=== PATIENT | female | born 1950 | race Caucasian/White ===

== ENCOUNTER → 2016-06-26 | Outpatient (CLI) | payer MEDICARE, SELFPAY | LOC: MRI 06-11 13:00 | DX: M54.2 Cervicalgia (principal); G89.4 Chronic pain syndrome; M50.21 Other cervical disc displacement, high cervical region; M46.02 Spinal enthesopathy, cervical region | CPT/HCPCS: 72141 ==

== ENCOUNTER → 2016-09-01 | Outpatient (CLI) | payer MEDICARE | LOC: RT 12:22 | DX: I10 Essential (primary) hypertension (principal) | CPT/HCPCS: 76536; 93005 ==

== ENCOUNTER → 2020-07-17 | Outpatient (CLI) | payer MEDICARE ==
[~2020-07-17] MED LIST: CYCLOBENZAPRINE10 MG PO; IBUPROFEN400 MG PO
== END ==
LOC: RAD 10:10
DX: M51.36 Other intervertebral disc degeneration, lumbar region (principal); K22.70 Barrett's esophagus without dysplasia; I10 Essential (primary) hypertension; M54.5 Low back pain; M50.322 Other cervical disc degeneration at C5-C6 level; M43.8X4 Other specified deforming dorsopathies, thoracic region; M51.34 Other intervertebral disc degeneration, thoracic region
CPT/HCPCS: 71046; 72050; 72072

== ENCOUNTER → 2020-08-19 | Outpatient (CLI) | payer MEDICARE | LOC: KOH-I 14:20 | DX: M54.6 Pain in thoracic spine (principal); G89.29 Other chronic pain; M51.24 Other intervertebral disc displacement, thoracic region; M41.84 Other forms of scoliosis, thoracic region | CPT/HCPCS: 72146 ==

== ENCOUNTER 2020-09-18 10:27 | Emergency (ER) | payer MEDICARE ==
[2020-09-18 11:57] LABS: HEMOGLOBIN 14.8 gm/dl (12.3-15.3); RED BLOOD COUNT 4.87 M/UL (4.00-5.10); WHITE BLOOD COUNT 6.4 K/UL (4.5-11.0)
[2020-09-18] MEDS ORDERED: CYCLOBENZAPRINE10 MG PO (13:00)
[2020-09-18] MEDS ORDERED: IBUPROFEN400 MG PO (13:00)
== END 2020-09-18 13:35 | disposition home or self-care (01) ==
LOC: ER1 10:27
PROVIDERS: Emergency Medicine
DX: M51.16 Intervertebral disc disorders with radiculopathy, lumbar region (principal)
CPT/HCPCS: 72131; 80048; 85025; 85652; 96374; 96375; 99284; J2270; J2405

== ENCOUNTER → 2020-09-18 | Outpatient (CLI) | payer MEDICARE | LOC: MAMO 08:57 | DX: Z12.31 Encounter for screening mammogram for malignant neoplasm of breast (principal); M51.36 Other intervertebral disc degeneration, lumbar region; K22.70 Barrett's esophagus without dysplasia; M81.0 Age-related osteoporosis without current pathological fracture; M54.5 Low back pain | CPT/HCPCS: 77063; 77067; 77080 ==

== ENCOUNTER → 2020-11-15 | Outpatient (CLI) | payer MEDICARE | LOC: EMI 08:37 | DX: M41.9 Scoliosis, unspecified (principal); M43.16 Spondylolisthesis, lumbar region; M51.16 Intervertebral disc disorders with radiculopathy, lumbar region | CPT/HCPCS: 72148 ==

== ENCOUNTER → 2021-04-28 | Outpatient (CLI) | payer MEDICARE ==
[~2021-04-28] VITALS: Ht 157.5 cm; Wt 80.3 kg
== END ==
LOC: OPSV 14:25
DX: M51.36 Other intervertebral disc degeneration, lumbar region (principal); K22.70 Barrett's esophagus without dysplasia; M81.0 Age-related osteoporosis without current pathological fracture; I10 Essential (primary) hypertension; M54.50 Low back pain, unspecified; R73.02 Impaired glucose tolerance (oral)
CPT/HCPCS: 96372; J3111

== ENCOUNTER → 2021-06-26 | Outpatient (CLI) | payer MEDICARE ==
[~2021-06-26] VITALS: Ht 157.5 cm; Wt 80.3 kg
[~2021-06-26] MED LIST changes: +CEPHALEXIN500 M1 PO
== END ==
LOC: OPSV 08:55
DX: M81.0 Age-related osteoporosis without current pathological fracture (principal); I10 Essential (primary) hypertension; M51.36 Other intervertebral disc degeneration, lumbar region; K22.70 Barrett's esophagus without dysplasia; R73.02 Impaired glucose tolerance (oral); M54.50 Low back pain, unspecified
CPT/HCPCS: 96372; J3111

== ENCOUNTER → 2021-07-25 | Outpatient (CLI) | payer MEDICARE ==
[~2021-07-25] VITALS: Ht 157.5 cm; Wt 80.3 kg
== END ==
LOC: OPSV 09:00
DX: M51.36 Other intervertebral disc degeneration, lumbar region (principal); K22.70 Barrett's esophagus without dysplasia; M81.0 Age-related osteoporosis without current pathological fracture; I10 Essential (primary) hypertension; M54.50 Low back pain, unspecified; R73.02 Impaired glucose tolerance (oral)
CPT/HCPCS: 96372; J3111

== ENCOUNTER → 2021-08-25 | Outpatient (CLI) | payer MEDICARE ==
[~2021-08-25] VITALS: Ht 157.5 cm; Wt 80.3 kg
== END ==
LOC: OPSV 08:48
DX: M51.36 Other intervertebral disc degeneration, lumbar region (principal); I10 Essential (primary) hypertension; M54.50 Low back pain, unspecified; K22.70 Barrett's esophagus without dysplasia; M81.0 Age-related osteoporosis without current pathological fracture; R73.02 Impaired glucose tolerance (oral)
CPT/HCPCS: 96372; J3111

== ENCOUNTER → 2021-09-24 | Outpatient (CLI) | payer MEDICARE ==
[~2021-09-24] VITALS: Ht 157.5 cm; Wt 80.3 kg
== END ==
LOC: OPSV 08:35
DX: M51.36 Other intervertebral disc degeneration, lumbar region (principal); K22.70 Barrett's esophagus without dysplasia; M81.0 Age-related osteoporosis without current pathological fracture; I10 Essential (primary) hypertension; M54.50 Low back pain, unspecified; R73.02 Impaired glucose tolerance (oral)
CPT/HCPCS: 96372; J3111

== ENCOUNTER → 2021-10-29 | Outpatient (CLI) | payer MEDICARE ==
[~2021-10-29] VITALS: Ht 157.5 cm; Wt 80.3 kg
== END ==
LOC: OPSV 10-24 09:00
DX: M51.36 Other intervertebral disc degeneration, lumbar region (principal); I10 Essential (primary) hypertension; K22.70 Barrett's esophagus without dysplasia; M81.0 Age-related osteoporosis without current pathological fracture; R73.02 Impaired glucose tolerance (oral); M54.50 Low back pain, unspecified
CPT/HCPCS: 96372; J3111

== ENCOUNTER → 2021-12-01 | Outpatient (CLI) | payer MEDICARE ==
[~2021-12-01] VITALS: Ht 157.5 cm; Wt 80.3 kg
== END ==
LOC: OPSV 08:25
DX: M81.0 Age-related osteoporosis without current pathological fracture (principal); I10 Essential (primary) hypertension; M51.36 Other intervertebral disc degeneration, lumbar region; K22.70 Barrett's esophagus without dysplasia; R73.02 Impaired glucose tolerance (oral); M54.50 Low back pain, unspecified
CPT/HCPCS: 96372; J3111